=== PATIENT | female | born 1995 | race Caucasian/White ===

== ENCOUNTER 2024-01-29 09:00 | Outpatient (RCR) | payer MEDICAID, SELFPAY | END 2024-01-30 07:34 | disposition home or self-care (01) | LOC: HO.PT 09:00 | PROVIDERS: PCP Internal Medicine; Visit Provider Internal Medicine | DX: M22.2X2 Patellofemoral disorders, left knee (principal); M22.2X1 Patellofemoral disorders, right knee | CPT/HCPCS: 97110; 97140; 97162; 97530 ==

== ENCOUNTER 2025-01-17 13:43 | Outpatient (REF) | payer OTHER, SELFPAY ==
--- NOTE | ~2025-01-17 | XR_ITS ---
CLINICAL HISTORY: ARTHRITIS AP standing view of bilateral knees, three views right knee, and three views of the left knee Comparison: None Findings: No fractures or dislocations. No significant loss of joint space, osteophytes, or erosions. No joint effusion. No radiopaque foreign body. IMPRESSION: 1. No acute findings. This document has been electronically signed by: Khanh Roper MD on 01/18/2025 13:39:32
== END 2025-01-17 13:44 | disposition home or self-care (01) ==
LOC: HO.XRAY 13:43
PROVIDERS: PCP Internal Medicine; Visit Provider Internal Medicine
DX: M22.2X1 Patellofemoral disorders, right knee (principal); M22.2X2 Patellofemoral disorders, left knee
CPT/HCPCS: 73564

== ENCOUNTER → 2025-01-17 13:52 | Outpatient (BNV) | payer OTHER, SELFPAY | PROVIDERS: PCP Internal Medicine; Visit Provider Radiology Diagnostic Radiology | DX: M17.0 Bilateral primary osteoarthritis of knee (principal) | CPT/HCPCS: 73564 ==

== ENCOUNTER 2025-02-21 12:41 | Outpatient (AMB) | payer OTHER, SELFPAY ==
--- NOTE | 2025-02-21 13:11 | A.OFFVIS_ITS ---
Vital Signs 02/21/25 13:17 Height 5 ft 4 in Weight 130 lb BMI 22.3 Intake Visit Reasons: New Pt - B/L knee pain Intake Note: Radha is a 29 year old female who presents today as a new patient for a evaluation of her bilateral knee pain. Hx of Core PT with relief. Patient reports off and on pain for about 4 - 5 months. She states that her right knee is worse than her left knee. Her pain is on both of the knee caps. Patient notices that her pain is worse when she is laying and going up and down the stairs. She expresses that her pain is worse once she sits down. Patient tired rolling topical gel with relief. Allergies No Known Allergies Allergy (Verified 02/22/25 09:09) HPI HPI New Pt - B/L knee pain: Details: Ms. Huynh is a 29-year-old female who presents to the office today for evaluation of bilateral knee pain. She reports the pain waxes and wanes and has been present for the past 4-5 months. The pain is located along the anterior aspect of the knees over the patellas bilaterally. She reports the pain is worse when going up and down stairs, squatting and kneeling. Pain begins to increase after activity once she is sedentary. She has tried and failed a topical gel with mild relief. Additionally, she has tried and failed physical therapy. 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 No ecchymosis, erythema, or joint effusion. No tenderness to palpation along the medial or lateral joint lines. Full knee extension and flexion. Negative Maria Teresa's. Negative anterior drawer. Mild pain with patellar grind. No patellar laxity. NVI. Assessment & Plan Assessment & Plan (1) Patellofemoral syndrome of both knees: Code(s): M22.2X1 - Patellofemoral disorders, right knee; M22.2X2 - Patellofemoral disorders, left knee Category: Medical Plan Ms. Huynh is a 29-year-old female who presents to the office today for evaluation of bilateral knee pain. She reports the pain waxes and wanes and has been present for the past 4-5 months. The pain is located along the anterior aspect of the knees over the patellas bilaterally. She reports the pain is worse when going up and down stairs, squatting and kneeling. Pain begins to increase after activity once she is sedentary. She has tried and failed a topical gel with mild relief. Additionally, she has tried and failed physical therapy. While in the office today, we discussed the nature of this condition and is difficulty in treatment. This meaning that there is quite a lot of dedication needed to physical therapy in order to rehab this condition which takes time to improve. I recommended that the patient re attend physical therapy. However, she states that she has the physical therapy exercises at home and will do a home exercise program. I offered the patient a topical pain cream compound from [facility]. She is interested in this and therefore the prescription was sent. She will follow up PRN, sooner if needed. X-rays of bilateral knees which were obtained on 01/17/2025, revealed no acute fracture or dislocation. Coding Level of Care Code New Pt Level 3 (47300) Diagnoses Patellofemoral syndrome of both knees M22.2X1; M22.2X2
[2025-02-21 13:17] VITALS: BMI 22.3
== END 2025-02-21 13:57 | disposition home or self-care (01) ==
LOC: HO.HOS 12:42
PROVIDERS: PCP Internal Medicine; Visit Provider Physician Assistant
DX: M22.2X1 Patellofemoral disorders, right knee (principal); M22.2X2 Patellofemoral disorders, left knee
CPT/HCPCS: 99203

== ENCOUNTER → 2025-02-21 12:41 | Outpatient (BNVA) | payer OTHER, SELFPAY | PROVIDERS: PCP Internal Medicine; Visit Provider Physician Assistant | DX: M22.2X1 Patellofemoral disorders, right knee (principal); M22.2X2 Patellofemoral disorders, left knee | CPT/HCPCS: 99202 ==

== ENCOUNTER 2025-02-22 09:02 | Emergency (ER) | payer OTHER, SELFPAY ==
[2025-02-22 09:08] VITALS: BP 112/60; PULSE 70; RESP 16; TEMP 37.1; O2SAT 100; BMI 23.4
--- NOTE | 2025-02-22 12:25 | ED_ITS ---
HPI - General Adult General Chief complaint: Extremity Injury, Lower Stated complaint: Knee pain Time Seen by Provider: 02/22/25 12:13 Source: patient Mode of arrival: ambulatory Limitations: no limitations History of Present Illness ED Provider: Wander Gonzalez [facility] narrative: 29-year-old female presents to ED for chronic knee pain for the past 4 to 5 months. Patient is being evaluated by primary care provider and orthopedic surgeon. Patient had x-rays which were normal. Patient was diagnosed as patellofemoral syndrome. Patient was last seen by Orthopedic this past January. Patient states pain is the same and has not improved. Patient requesting MRI. Patient denies any swelling, redness, calf pain, bluish black discoloration, chest pain, or shortness of breath. Related Data Previous Rx's ?Medication ?Instructions ?Recorded ketorolac 10 mg tablet 10 mg PO Q6H PRN pain #20 tabs 02/22/25 prednisone 20 mg tablet 40 mg (2 x 20 mg) PO DAILY 5 days 02/22/25 #10 tabs Allergies Allergy/AdvReac Type Severity Reaction Status Date / Time No Known Allergies Allergy Verified 02/22/25 09:09 Review of Systems 2 Review of Systems: Right knee pain Yes all other systems are reviewed and are negative [facility] Social History Social History (Updated 02/21/25 @ 13:18 by Bethany Galaviz) Alcohol intake: never Patient Tobacco Use Status: Never used Tobacco Advance Directives: No Advance Directives Information Provided: Yes Current occupational status: employed 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 Physical Exam ED Vital Signs: Vital Signs - 24 hr 02/22/25 09:08 Temperature 98.7 F Pulse Rate 70 Respiratory Rate 16 Blood Pressure 112/60 Pulse Oximetry 100 Oxygen Delivery Method Room Air BMI result Body Mass Index 23.4 Const General: cooperative, healthy appearing, comfortable, no acute distress, well developed, alert, awake and Physically active Orientation/consciousness: patient oriented x3 HENMT Head: Yes normal to inspection, Yes No palpable skull fracture present, Yes normocephalic and Yes atraumatic Eyes General: appearance normal, both eyes and all related structures Neck Neck: Yes normal visual inspection, Yes full ROM, Yes no lymphadenopathy, Yes no meningeal signs, Yes trachea midline, Yes supple, No anterior neck swelling and No tender Chest Chest palpation & inspection: normal inspection of the chest and normal palpation of entire chest wall Resp Effort & Inspection: normal respiratory effort and able to speak in complete sentences Auscultation: clear to auscultation bilaterally Cardio Jugular venous distension: no JVD Heart sounds: S1 normal heart sound present and S2 normal heart sound present GI Inspection: Yes normal to inspection Palpation (GI): Soft to palpation, not firm, nontender, no guarding and not rigid General: Yes no CVA tenderness Back/Spine/Pelvis Back: no CVA tenderness and No back tenderness Skin General skin exam: no rashes or lesions noted, elasticity normal and turgor normal Neuro General: patient oriented x3, gait normal, tone normal, moves all extremities, Normal light touch and pain sensation, no meningeal signs, no focal motor deficits, CN's II-XI intact bilaterally and normal sensation to monofilament Extrem General: Yes normal to inspection, Yes full ROM and Yes capillary refill normal Knee images: 2 1. Negative for tenderness on palpation. Positive for pain on range of motion. Negative for erythema, stiffness, bluish black discoloration, pus discharge, foul odor, or red streaks. Negative for warmth. Normal temperature. Rest of extremity normal. Motor/neuro/vascular exam intact. 2. Negative for tenderness on palpation. Positive for pain on range of motion. Negative for erythema, stiffness, bluish black discoloration, pus discharge, foul odor, or red streaks. Negative for warmth. Normal temperature. Rest of extremity normal. Motor/neuro/vascular exam intact. Psych Appearance: grossly normal, well kempt and not disheveled Medications Administered Discontinued Medications Generic Name Dose Route Start Last Admin Trade Name Dreq PRN Reason Stop Dose Admin Ketorolac Tromethamine 30 mg 02/22/25 12:31 02/22/25 13:18 Ketorolac Tromethamine 30 Mg/Ml Vial IM 02/22/25 12:32 30 mg ONCE ONE Administration Prednisone 40 mg 02/22/25 12:31 02/22/25 13:19 Prednisone 20 Mg Tablet PO 02/22/25 12:32 40 mg ONCE ONE Administration Medical Decision Making Medical Decision Making MDM Narrative: 29-year-old female presents to ED for chronic right knee pain without any trauma. Presently negative for any knee swelling. Patient has been evaluated by PCP and orthopedic surgeon. Presently not suspecting septic joint, gout, knee dislocation, fracture, compartment syndrome, DVT, cellulitis, osteomyelitis, arterial occlusion, fracture, dislocation, or any other life- threatening etiology. no need for repeat xray. Patient explained worrisome signs and informed to return to the ED immediately. Patient requesting MRI informed can not be done in the ED. Differential Diagnosis Differential Diagnoses: The differential diagnosis associated with the presentation includes (Knee pain, sprain) Admission/Observation Consideration of admission/observation: Escalation of care including admission/observation considered Independent Historian Clinical information obtained from an independent historian. History obtained from or confirmed by: Other (patient) External Record Review External record reviewed: Other Prescription Management I considered prescription management with: Pain Medication Discharge Plan Discharge Clinical Impression: Knee pain Patient Disposition: Home, Self-Care Instructions: Knee Pain (ED) Additional Instructions: Recommend follow-up once again with orthopedic surgeon for MRI order. Also follow-up with your primary care for now mother referral for physical therapy. Return to the ED for any knee swelling, redness, bluish black discoloration, fever, chills, leg swelling, calf pain, or any other concerning symptoms. Prescriptions: New ketorolac 10 mg tablet 10 mg PO Q6H PRN (Reason: pain) Qty: 20 0RF Rx Instructions: Received Toradol 30 mg IM in the ED prednisone 20 mg tablet 40 mg PO DAILY 5 Days Qty: 10 0RF Ref[place]: [facility] [place] [facility] [Provider Group] (Chronic knee pain. We will need MRI) Annalisa Quinones MD [Primary Care Provider] - (Knee pain may need MRI) Stand Alone Forms: Work/School Release Interventions: ED Discharge Assessment Last Done: 02/22/25 13:21 Discharge Date/Time: 02/22/25 13:27 Print Language: Latvian
[2025-02-22] MEDS: Ketorolac Tromethamine 30 MG/ML VIAL IM (13:18)
[2025-02-22] MEDS: predniSONE 20 MG TABLET 40 MG PO (13:19)
[2025-02-22 13:21] VITALS: BP 112/60; PULSE 70; RESP 16; TEMP 37.1; O2SAT 100
== END 2025-02-22 13:27 | disposition home or self-care (01) ==
PROVIDERS: Emergency Provider Emergency Medicine Emergency Medical Services; PCP Internal Medicine
DX: M25.561 Pain in right knee (principal)
CPT/HCPCS: 96372; 99283; 99284; J1885

== ENCOUNTER 2025-03-08 18:07 | Outpatient (REF) | payer OTHER, SELFPAY ==
--- NOTE | ~2025-03-08 | MR_ITS ---
EXAMINATION: MRI RIGHT KNEE WITHOUT CONTRAST HISTORY: M22.2X1 - Patellofemoral disorders, right knee COMPARISON: Correlation is made with plain films of the right knee dated 01/17/2025. TECHNIQUE: Coronal T1 and fat-suppressed proton density, sagittal proton density and fat-suppressed proton density, and axial fat suppressed T2 weighted MR images of the right knee were obtained. FINDINGS: Bone marrow: There is bone marrow edema in the patella which may represent a bone contusion. Remaining bone marrow signal intensity is normal. Joint effusion: There is no joint effusion. Jonas's cyst: There is no Jonas's cyst. Articular cartilage: Intact Muscles/soft tissues: The visualized muscles demonstrate normal signal intensity. There is no edema of the suprapatellar or prefemoral fat pads. Anterior cruciate ligament: Intact Posterior cruciate ligament: Intact Medial collateral ligament: Intact Lateral collateral ligament: Intact Medial meniscus: Intact Lateral meniscus: Intact Flexor mechanism: The popliteus, gastrocnemius, and hamstring tendons are intact. Quadriceps tendon: Intact Patellar tendon: Intact Patellar retinacula: Intact MR/MR knee RT wo con IMPRESSION: Bone marrow edema of the patella which may represent a bone contusion. Otherwise unremarkable MRI of the right knee. Electronically signed by: Donnie Ribera MD 03/09/2025 07:50 AM EDT
== END 2025-03-08 18:08 | disposition home or self-care (01) ==
LOC: HO.MRI 18:07
PROVIDERS: PCP Internal Medicine; Visit Provider Physician Assistant
DX: M22.2X2 Patellofemoral disorders, left knee (principal); M22.2X1 Patellofemoral disorders, right knee
CPT/HCPCS: 73721

== ENCOUNTER → 2025-03-08 18:19 | Outpatient (BNV) | payer OTHER, SELFPAY | PROVIDERS: PCP Internal Medicine; Visit Provider Radiology Diagnostic Radiology | DX: D75.89 Other specified diseases of blood and blood-forming organs (principal) | CPT/HCPCS: 73721 ==

== ENCOUNTER 2025-04-05 11:44 | Outpatient (AMB) | payer OTHER, SELFPAY ==
--- NOTE | 2025-04-05 11:44 | MHC.OFFVIS ---
Intake Visit Reasons: OV - right knee MRI review Intake Note: Radha is a 29 year old female who presents today for a MRI review of her right knee. Patient reports her knee feels tender today. IMPRESSION: Bone marrow edema of the patella which may represent a bone contusion. Otherwise unremarkable MRI of the right knee. Allergies No Known Allergies Allergy (Verified 04/05/25 11:47) HPI HPI OV - right knee MRI review: Details: Ms. Huynh is a 29-year-old female who presents to the office today for MRI review of the right knee. She reports that she continues to have discomfort. Her discomfort is located along the anterior aspect of the knee. 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 No ecchymosis, erythema, or joint effusion. No tenderness to palpation along the medial or lateral joint lines. Full knee extension and flexion. Negative Maria Teresa's. Negative anterior drawer. Mild pain with patellar grind. No patellar laxity. NVI. Assessment & Plan Assessment & Plan (1) Patellofemoral syndrome of both knees: Code(s): M22.2X1 - Patellofemoral disorders, right knee; M22.2X2 - Patellofemoral disorders, left knee Category: Medical Plan While in the office today we discussed the MRI imaging findings of bone bruising along articulating surface of the patella of the right knee. This confirms the diagnosis of patellofemoral syndrome. I have recommended knee bracing as needed in which the patient reports she has not home. I have also recommended physical therapy. She states that she had attended in the past and has the exercises at home. I encouraged her to continue with dedication to physical therapy and also provided a home exercise print out that she may do. She will follow up PRN, sooner if needed. Right knee MRI: IMPRESSION: Bone marrow edema of the patella which may represent a bone contusion. Otherwise unremarkable MRI of the right knee. Coding Level of Care Code Est Pt Level 3 (81966) Diagnoses Patellofemoral syndrome of both knees M22.2X1; M22.2X2
== END 2025-04-05 11:59 | disposition home or self-care (01) ==
PROVIDERS: PCP Internal Medicine; Visit Provider Physician Assistant
DX: M22.2X1 Patellofemoral disorders, right knee (principal); M22.2X2 Patellofemoral disorders, left knee
CPT/HCPCS: 99213

== ENCOUNTER → 2025-04-05 11:44 | Outpatient (BNVA) | payer OTHER, SELFPAY | PROVIDERS: PCP Internal Medicine; Visit Provider Physician Assistant | DX: M22.2X1 Patellofemoral disorders, right knee (principal); M22.2X2 Patellofemoral disorders, left knee | CPT/HCPCS: 99212 ==